=== PATIENT | female | born 1970 | race Caucasian/White ===

== ENCOUNTER 2022-11-17 08:12 | Emergency (ER) | payer OTHER ==
[~2022-11-17] VITALS: Ht 165.1 cm; Wt 97.5 kg
[2022-11-17] MEDS ORDERED: NEXIUM20 M1 PO (08:43)
[2022-11-17] MEDS ORDERED: METOPROLOL SUCC25 MG PO (08:43)
[2022-11-17] MEDS ORDERED: OPSUMIT10 MG PO (08:43)
[2022-11-17] MEDS ORDERED: CHILDREN'S ASPI81 MG PO (08:44)
[2022-11-17] MEDS ORDERED: ALYQ20 MG PO (08:44)
[2022-11-17] MEDS ORDERED: TORSEMIDE10 MG PO (08:45)
[2022-11-17] MEDS ORDERED: MAGNESIUM400 MG PO (08:45)
== END 2022-11-17 11:13 | disposition home or self-care (01) ==
LOC: ER 08:12
DX: S20.20XA Contusion of thorax, unspecified, initial encounter (principal); W18.30XA Fall on same level, unspecified, initial encounter; Y93.89 Activity, other specified; Y92.89 Other specified places as the place of occurrence of the external cause; Y99.9 Unspecified external cause status; I10 Essential (primary) hypertension; Z88.2 Allergy status to sulfonamides